=== PATIENT | male | born 1975 | race Asian ===

== ENCOUNTER → 2020-07-28 10:38 | Outpatient (CLI) | payer BC, SELFPAY ==
[2020-07-28] MEDS: COVID-19 VACC, Ad26(JANSSEN)/PF 0.5 ML IM (10:44)
== END ==
PROVIDERS: Visit Provider Internal Medicine
DX: Z23 Encounter for immunization (principal)
CPT/HCPCS: 0031A; 91303

== ENCOUNTER → 2020-11-07 07:36 | Outpatient (CLI) | payer BC, SELFPAY ==
[2020-11-07 08:19] LABS: Add Manual Diff / Slide Review NO; Basophils Absolute Auto 0 /uL (0-100); Basophils Percent Auto 0.3 % (0-2); Eosinophils Absolute Auto 0 /uL (0-450); Eosinophils Percent Auto 1.2 % (2-4); Hematocrit 44.5 % (41-53); Hemoglobin 15.1 g/dL (13.5-17.5); Lymphocytes Absolute Auto 1400 /uL (1100-4500); Lymphocytes Percent Auto 34.4 % (25-40); Mean Corpuscular HGB Conc 33.9 % (30-36); Mean Corpuscular Hemoglobin 29.1 PG (26-34); Mean Corpuscular Volume 85.8 fL (80-100); Monocytes Absolute Auto 300 /uL (0-900); Monocytes Percent Auto 6.2 % (3-14); Neutrophils Absolute Auto 2400 /uL (1500-7000); Neutrophils Percent Auto 57.9 % (50-75); Platelet Count 157 X10^3/uL (150-400); Red Blood Cell Count 5.19 X10^6/uL (4.5-5.9); Red Cell Distribution Width 12.3 % (11.6-14.8); White Blood Cell Count 4.1 X10^3/uL (4.5-11.0)
[2020-11-07 08:43] LABS: Alanine Aminotransferase 36 IU/L (<50); Albumin 4.2 g/dL (3.5-5.0); Albumin Globulin Ratio 1.7 (1.0-2.8); Alkaline Phosphatase 60 U/L (38-126); Aspartate Aminotransferase 28 IU/L (17-59); Bilirubin Total 1.1 mg/dL (0.2-1.3); Blood Urea Nitrogen 16 mg/dL (9-20); Calcium 9.6 mg/dL (8.4-10.2); Carbon Dioxide 28 mmol/L (22-32); Chloride 105 mmol/L (98-107); Cholesterol 167 mg/dL (140-199); Estimated Glomerular Filt Rate > 60.0 mL/min (>60); Globulin 2.5 g/dL (1.7-4.1); Glucose 238 mg/dL (70-100); HDL Cholesterol 37 mg/dL (40-60); HEMOLYSIS < 15 (0-50); LDL Cholesterol Calculated 100 mg/dL (<100); Potassium 5.7 mmol/L (3.4-5.1); Sodium 140 mmol/L (137-145); Total Protein 6.7 g/dL (6.3-8.2); Triglycerides 150 mg/dL (35-150)
== END ==
PROVIDERS: PCP Family Medicine; Referring Provider Family Medicine; Visit Provider Family Medicine
DX: Z13.0 Encounter for screening for diseases of the blood and blood-forming organs and certain disorders involving the immune mechanism (principal); Z13.1 Encounter for screening for diabetes mellitus; Z13.220 Encounter for screening for lipoid disorders
CPT/HCPCS: 36415; 80053; 80061; 85025

== ENCOUNTER → 2020-11-22 06:57 | Outpatient (CLI) | payer BC, SELFPAY ==
[2020-11-22 08:43] LABS: Alanine Aminotransferase 33 IU/L (<50); Albumin 4.2 g/dL (3.5-5.0); Albumin Globulin Ratio 1.6 (1.0-2.8); Alkaline Phosphatase 60 U/L (38-126); Aspartate Aminotransferase 30 IU/L (17-59); BUN Creatinine Ratio 21.3 (6-22); Blood Urea Nitrogen 19 mg/dL (9-20); Calcium 9.1 mg/dL (8.4-10.2); Carbon Dioxide 28 mmol/L (22-32); Chloride 102 mmol/L (98-107); Estimated Glomerular Filt Rate > 60.0 mL/min (>60); Globulin 2.7 g/dL (1.7-4.1); Glucose 126 mg/dL (70-100); HEMOLYSIS < 15 (0-50); Potassium 4.3 mmol/L (3.4-5.1); Sodium 139 mmol/L (137-145); Total Protein 6.9 g/dL (6.3-8.2)
[2020-11-22 08:53] LABS: Add Manual Diff / Slide Review NO; Basophils Absolute Auto 100 /uL (0-100); Basophils Percent Auto 1.3 % (0-2); Eosinophils Absolute Auto 200 /uL (0-450); Eosinophils Percent Auto 4.9 % (2-4); Hematocrit 45.1 % (41-53); Hemoglobin 15.6 g/dL (13.5-17.5); Lymphocytes Absolute Auto 1500 /uL (1100-4500); Lymphocytes Percent Auto 31.3 % (25-40); Mean Corpuscular HGB Conc 34.5 % (30-36); Mean Corpuscular Hemoglobin 29.7 PG (26-34); Monocytes Absolute Auto 200 /uL (0-900); Monocytes Percent Auto 3.5 % (3-14); Neutrophils Absolute Auto 2900 /uL (1500-7000); Platelet Count 149 X10^3/uL (150-400); Red Blood Cell Count 5.25 X10^6/uL (4.5-5.9); Red Cell Distribution Width 12.5 % (11.6-14.8); White Blood Cell Count 4.8 X10^3/uL (4.5-11.0)
[2020-11-22 09:12] LABS: Hemoglobin A1C% w Est Avg Glu 9.8 % (4.0-6.0)
== END ==
PROVIDERS: PCP Family Medicine; Referring Provider Family Medicine; Visit Provider Family Medicine
DX: E87.5 Hyperkalemia (principal); R73.9 Hyperglycemia, unspecified
CPT/HCPCS: 36415; 80053; 83036; 85025

== ENCOUNTER → 2020-12-20 09:34 | Outpatient (CLI) | payer BC, SELFPAY ==
[2020-12-20 10:48] LABS: Hemoglobin A1C% w Est Avg Glu 7.2 % (4.0-6.0)
[2020-12-20 10:57] LABS: Alanine Aminotransferase 18 IU/L (<50); Albumin 4.6 g/dL (3.5-5.0); Albumin Globulin Ratio 1.9 (1.0-2.8); Alkaline Phosphatase 55 U/L (38-126); Aspartate Aminotransferase 26 IU/L (17-59); BUN Creatinine Ratio 26.7 (6-22); Bilirubin Total 1.1 mg/dL (0.2-1.3); Blood Urea Nitrogen 20 mg/dL (9-20); Carbon Dioxide 27 mmol/L (22-32); Chloride 105 mmol/L (98-107); Estimated Glomerular Filt Rate > 60.0 mL/min (>60); Globulin 2.4 g/dL (1.7-4.1); Glucose 100 mg/dL (70-100); HEMOLYSIS < 15 (0-50); Potassium 4.2 mmol/L (3.4-5.1); Sodium 138 mmol/L (137-145)
== END ==
PROVIDERS: PCP Family Medicine; Referring Provider Family Medicine; Visit Provider Family Medicine
DX: R73.9 Hyperglycemia, unspecified (principal)
CPT/HCPCS: 36415; 80053; 83036

== ENCOUNTER → 2021-02-22 08:06 | Outpatient (CLI) | payer BC, SELFPAY ==
[2021-02-22 09:08] LABS: Add Manual Diff / Slide Review NO; Basophils Absolute Auto 0 /uL (0-100); Basophils Percent Auto 0.3 % (0-2); Eosinophils Absolute Auto 100 /uL (0-450); Eosinophils Percent Auto 2.2 % (2-4); Hematocrit 45.2 % (41-53); Hemoglobin 15.5 g/dL (13.5-17.5); Lymphocytes Absolute Auto 1800 /uL (1100-4500); Lymphocytes Percent Auto 36.6 % (25-40); Mean Corpuscular HGB Conc 34.3 % (30-36); Mean Corpuscular Hemoglobin 29.2 PG (26-34); Mean Corpuscular Volume 85.1 fL (80-100); Monocytes Absolute Auto 300 /uL (0-900); Monocytes Percent Auto 5.9 % (3-14); Neutrophils Absolute Auto 2700 /uL (1500-7000); Platelet Count 134 X10^3/uL (150-400); Red Blood Cell Count 5.32 X10^6/uL (4.5-5.9); Red Cell Distribution Width 12.3 % (11.6-14.8); White Blood Cell Count 4.8 X10^3/uL (4.5-11.0)
[2021-02-22 09:26] LABS: Hemoglobin A1C% w Est Avg Glu 5.4 % (4.0-6.0)
[2021-02-22 10:10] LABS: BUN Creatinine Ratio 18.4 (6-22); Blood Urea Nitrogen 16 mg/dL (9-20); Calcium 9.4 mg/dL (8.4-10.2); Carbon Dioxide 32 mmol/L (22-32); Chloride 101 mmol/L (98-107); Estimated Glomerular Filt Rate > 60.0 mL/min (>60); Glucose 115 mg/dL (70-100); HEMOLYSIS < 15 (0-50); Potassium 4.2 mmol/L (3.4-5.1); Sodium 141 mmol/L (137-145)
== END ==
PROVIDERS: PCP Family Medicine; Referring Provider Family Medicine; Visit Provider Family Medicine
DX: D69.6 Thrombocytopenia, unspecified (principal); E87.5 Hyperkalemia; R73.9 Hyperglycemia, unspecified
CPT/HCPCS: 36415; 80048; 83036; 85025

== ENCOUNTER → 2021-02-23 14:55 | Outpatient (CLI) | payer BC, SELFPAY ==
--- NOTE | 2021-02-24 16:24 | DIAB.MNT ---
Medical Nutrition Therapy Assessment Name: Gelacio Díaz Date: 02/23/21 Time: 330-4p Provider: Stephen Gelacio presents for initial visit. Original hgA1c 11/22/20 indicated T2DM dx with 9.8%. Then repeat HgA1c on 12/20/20 showed a dramatic decrease to 7.2%. Most recent HgA1c was 5.4% without medications indicating remission of T2DM. Gelacio reports cutting out most carbohydrates, primarily rice. Also endorses increase in protein intake. Has questions about if he can enjoy Ramen occasionally. Diet recall: 8a: 1.5-2c cooked oats with grapefruit, kimchi 12-1p: tofu, salad, egg, meat and apple snack: nuts 6-7p: tofu, 1.5c meat, vegetables, kimchi 8-9p: 1c berries +/- grapefruit Beverages: water 34-50oz, 2c green tea, 1c black coffee Denies any BM issues. Does endorse some hair loss. Not sure if this is related to nutrition changes or not. Anthropometrics: Ht: 5'10.8 Wt: 214# Physical Activity: Reports new regimen of walking for over 60 min daily (4 miles) Self-Monitoring Blood Glucose: Checks BG at home. FBG often 110-130 mg/dL. Diabetes Medications: none Pertinent Labs: HgA1c 11/22/20 : 9.8% H HgA1c 12/20/20 : 7.2% H HgA1c 02/22/21 : 5.4% Past Medical History: (Last Updated 11/07/20 @ 08:58 by Shahbaz Mitchell MD) Hyperglycemia Hyperkalemia Nutrition Rx: Plate Method Nutrition Diagnosis: - Excessive saturated fat intake r/t large meat portions to avoid carb intake aeb diet recall Intervention: This participant was very receptive. Provided appropriate educational handouts. Discussed the following topics: Completed intake assessment. D HgA1c BG goals Plate Method, impact of macronutrients on blood sugar Eating out Choosing more plant based proteins over animal proteins Heart health nutrition Provided culturally appropriate nutrition handouts Role of physical activity Created SMART goals for patient self-care and success. Goals: Continue walks Try to choose tofu more often over meat Follow-up: NICOLAS GOMEZ follow-up in 2-3 weeks jaylen Maxwell RDN, JASON Certified Diabetes Care and Consumer Lender P: [phone] Thank you for this referral
== END ==
PROVIDERS: PCP Family Medicine; Referring Provider Family Medicine; Visit Provider Family Medicine
DX: Z86.39 Personal history of other endocrine, nutritional and metabolic disease (principal); Z71.3 Dietary counseling and surveillance
CPT/HCPCS: G0108

== ENCOUNTER 2021-04-05 15:34 | Outpatient (RCR) | payer BC, SELFPAY ==
--- NOTE | 2021-04-05 17:18 | PT.OIE ---
Current Diagnoses Pain in left shoulder (04/05/21) Stiffness of left shoulder, not elsewhere classified (04/05/21) Other injury of muscle(s) and tendon(s) of the rotator cuff of left shoulder, subsequent encounter (04/05/21) Past Medical History (Last Updated 11/07/20 @ 08:58 by Shahbaz Mitchell MD) Hyperglycemia Hyperkalemia Visit Care Team Role Provider Type Shahbaz Mitchell MD Attending Provider Physician Family Provider Primary Care Provider Referring Provider Specialty: [facility] Address: [address] [place] [address] Email: [email or web address] Physical Therapy Initial Evaluation PT-OP-A Visit Information Start: 04/05/21 16:50 Freq: Status: Active Protocol: Document 04/05/21 16:00 DCW (Rec: 04/05/21 17:18 DCW [id number]) Out-Patient Physical Therapy Visit Information Visit Information Visit Type Initial Evaluation Visit Start Time 16:00 Visit Stop Time 16:40 Total Visit Minutes 40 Visit Number 1 Number of SUPERVISOR PASTRY Visits 0 Evaluation Information Evaluation Date 04/05/21 PT-OP-B Current Condition Start: 04/05/21 16:50 Freq: Status: Active Protocol: Document 04/05/21 16:00 DCW (Rec: 04/05/21 17:18 DCW [id number]) Current Condition History of Current Condition Onset Date Two month history Current Complaints Left shoulder pain and loss of motion History of Current Condition Pt is a 45 year old male presenting with a two months history of left shoulder pain. Pt reports he does not remember any initial injury, it just began hurting one day. Notes that if he is relaxed, he has no pain, but begins to experience severe pain when raising his arm out to the saide or forward. Pt also unable to reach his left hand over to wash his right armpit while showering without increased pain. Notes pain wakes him up at night if he moves his arm wrong. PT-OP-C Subjective Start: 04/05/21 16:50 Freq: Status: Active Protocol: Document 04/05/21 16:00 DCW (Rec: 04/05/21 17:18 DCW [id number]) OP-PT Subjective Patient Comments Patient Comments I can only get my arm about longterm up before it really hurts. Patient Questionnaires Quick Dash- Upper Extremity Quick Dash UE Score 27.27% Quick Dash UE Impairment 20 to 39% Impaired (Score 20- 39) OP-PT Pain Assessment Pain Assessment Grid Paper Pain Assessment Grid Completed Yes Location Left Lateral Shoulder Intensity 9 Scale Used Numeric (0 - 10) PT-OP-K Range of Motion Start: 04/05/21 16:50 Freq: Status: Active Protocol: Document 04/05/21 16:00 DCW (Rec: 04/05/21 17:18 DCW [id number]) Shoulder Goniometric Range of Motion Shoulder Left Passive Testing Position Supine Flexion 123 Abduction 90 External Rotation at 0 degrees Abduction 5 Left Active Testing Position Sitting Flexion 88 Abduction 65 External Rotation at 0 degrees Abduction 2 Internal Rotation Behind Back (text) PSIS PT-OP-L Special Tests Start: 04/05/21 16:50 Freq: Status: Active Protocol: Document 04/05/21 16:00 DCW (Rec: 04/05/21 17:18 DCW [id number]) Special Tests Shoulder Special Tests Speed's Biceps Test Results Negative Painful Arc Test Results Positive L Passive ER Rotator Cuff Test Results Positive L Holland Tk Impingement Test Results Negative Lift-Off Rotator Cuff Test Results Unable to position Grind Labrum Test Results Negative Empty Can Test Results Negative Clunk Test Test Results Negative Apprehension Test Test Results Negative Belly Press Test Results Negative Anterior Draw Test Results Negative PT-OP-M Strength Start: 04/05/21 16:50 Freq: Status: Active Protocol: Document 04/05/21 16:00 DCW (Rec: 04/05/21 17:18 DCW [id number]) Shoulder Strength Shoulder Manual Muscle Testing Left Flexion 2+ Poor+ Abduction (C5) 2- Poor- External Rotation 2+ Poor+ Internal Rotation 4- Good- PT-OP-Q Treatments Start: 04/05/21 16:50 Freq: Status: Active Protocol: Document 04/05/21 16:00 DCW (Rec: 04/05/21 17:18 DCW [id number]) Therapeutic Exercises Standing Exercises 3 Standing Exercise Name Shoulder IR/ER Side left Resistance Lv 2 Equipment Used T-band 2 Standing Exercise Name PROM Flexion/Abd with PVC Side left 1 Standing Exercise Name Pendulums Side left PT-OP-T Assessment and Plan Start: 04/05/21 16:50 Freq: Status: Active Protocol: Document 04/05/21 16:00 DCW (Rec: 04/05/21 17:18 DCW [id number]) Physical Therapy Assessment Rehab Potential Rehabilitation Potential Fair Evaluation Complexity Number of Personal Factors/Comorbidities 1-2 Number of Body Systems Impaired 1-2 Clinical Presentation at Evaluation Stable Impairments Impairments Functional Activities, Functional Mobility,Pain,ROM, Soft Tissue Mobility,Strength Goals Three Impairment Pt demonstrates limited ROM secondary to left shoulder pain Nursing Home Goal (LTG) Pt to report ability to use left arm to wash right axillary area in the shower 100% of the time with no increased shoulder pain. LTG Duration 06/06/21 Two Impairment Pt has frequent disturbed sleep due to shoulder pain Nursing Home Goal (LTG) Pt to report decrease in sleep disturbances secondary to left shoulder pain to two or fewer times per night LTG Duration 06/06/21 One Impairment Pt does not have an appropriate home exercise program Short Term Goal (STG) Pt to be independent and compliant with an appropriate HEP STG Duration 05/06/21 Assessment Summary Assessment Pt presents with signs and symptoms consistent with left supraspinatus injury. Based on severe pain and significant loss of ROM, pt may have degenerative tearing of his supraspinatus tendon, however pt would likely need an MRI to further rule in/out severity of his injury. Pt has significant loss of left shoulder ROM, especially abduction, and demonstrates severe weakness. Discussed with him importance of performing passive ROM to limit risk of adhesive capsulitis, and reviewed gentle strengthening. At this time, pt would prefer to work on HEP independently, and only return for follow-up visits with PT if he needs. Would still recommend considering referral for MRI if pt does not show improvement. Physical Therapy Plan Frequency and Duration Frequency of Treatment Every Other Week Duration of Treatment Two months Plan of Care Start Date 04/05/21 Plan of Care End Date 06/06/21 Therapeutic Interventions Therapeutic Interventions Home Exercise Program,Joint Mobilizations,Manual Therapy, Neuromuscular Re-education, Patient/Caregiver Education, Self-Care/Home Management,Soft Tissue Mobilization, Therapeutic Activities, Therapeutic Exercises Modalities Cold Pack/Ice Massage,Electric Stimulation,Hot Packs, Ultrasound Next Visit Focus/Plan Next Note Type Treatment Note Next Visit Plan PROM, shoulder strengthening
--- NOTE | 2021-04-05 17:18 | PT.OPPOC ---
Physical, Occupational & Speech Therapy At [facility] Current Diagnoses Pain in left shoulder (04/05/21) Stiffness of left shoulder, not elsewhere classified (04/05/21) Other injury of muscle(s) and tendon(s) of the rotator cuff of left shoulder, subsequent encounter (04/05/21) Visit Care Team Role Provider Type Shahbaz Mitchell MD Attending Provider Physician Family Provider Primary Care Provider Referring Provider Specialty: Family Practice Address: [address] [place] [address], [employer] Email: [email or web address] Plan Of Care PT-OP-T Assessment and Plan Start: 04/05/21 16:50 Freq: Status: Active Protocol: Document 04/05/21 16:00 DCW (Rec: 04/05/21 17:18 DCW [id number]) Physical Therapy Assessment Rehab Potential Rehabilitation Potential Fair Evaluation Complexity Number of Personal Factors/Comorbidities 1-2 Number of Body Systems Impaired 1-2 Clinical Presentation at Evaluation Stable Impairments Impairments Functional Activities, Functional Mobility,Pain,ROM, Soft Tissue Mobility,Strength Goals Three Impairment Pt demonstrates limited ROM secondary to left shoulder pain Intermediate Goal (LTG) Pt to report ability to use left arm to wash right axillary area in the shower 100% of the time with no increased shoulder pain. LTG Duration 06/06/21 Two Impairment Pt has frequent disturbed sleep due to shoulder pain Intermediate Goal (LTG) Pt to report decrease in sleep disturbances secondary to left shoulder pain to two or fewer times per night LTG Duration 06/06/21 One Impairment Pt does not have an appropriate home exercise program Short Term Goal (STG) Pt to be independent and compliant with an appropriate HEP STG Duration 05/06/21 Assessment Summary Assessment Pt presents with signs and symptoms consistent with left supraspinatus injury. Based on severe pain and significant loss of ROM, pt may have degenerative tearing of his supraspinatus tendon, however pt would likely need an MRI to further rule in/out severity of his injury. Pt has significant loss of left shoulder ROM, especially abduction, and demonstrates severe weakness. Discussed with him importance of performing passive ROM to limit risk of adhesive capsulitis, and reviewed gentle strengthening. At this time, pt would prefer to work on HEP independently, and only return for follow-up visits with PT if he needs. Would still recommend considering referral for MRI if pt does not show improvement. Physical Therapy Plan Frequency and Duration Frequency of Treatment Every Other Week Duration of Treatment Two months Plan of Care Start Date 04/05/21 Plan of Care End Date 06/06/21 Therapeutic Interventions Therapeutic Interventions Home Exercise Program,Joint Mobilizations,Manual Therapy, Neuromuscular Re-education, Patient/Caregiver Education, Self-Care/Home Management,Soft Tissue Mobilization, Therapeutic Activities, Therapeutic Exercises Modalities Cold Pack/Ice Massage,Electric Stimulation,Hot Packs, Ultrasound Next Visit Focus/Plan Next Note Type Treatment Note Next Visit Plan PROM, shoulder strengthening Plan of Care Dates Plan of Care Start Date 04/05/21 Plan of Care End Date 06/06/21 Electronically Signed by: Rick Montes, PT 04/05/21 4713 Please Sign and Return: I have reviewed this Plan of Care and certify that the skilled therapy services above are required to meet the patient?s needs. Physician Signature Date Printed Name and Credentials Clinical Instructor Signature Printed Name and Credentials
--- NOTE | 2021-06-22 10:06 | PT.OPDS ---
Current Diagnoses Pain in left shoulder (04/05/21) Stiffness of left shoulder, not elsewhere classified (04/05/21) Other injury of muscle(s) and tendon(s) of the rotator cuff of left shoulder, subsequent encounter (04/05/21) Visit Care Team Role Provider Type Shahbaz Mitchell MD Attending Provider Physician Family Provider Primary Care Provider Referring Provider Specialty: Family Practice Address: [address] [place] [address], [facility] Email: [email or web address] Visit Number Visit Number 1 Discharge Summary PT-OP-B Current Condition Start: 04/05/21 16:50 Freq: Status: Active Protocol: Document 04/05/21 16:00 DCW (Rec: 04/05/21 17:18 DCW [id number]) Current Condition History of Current Condition Onset Date Two month history Current Complaints Left shoulder pain and loss of motion History of Current Condition Pt is a 45 year old male presenting with a two months history of left shoulder pain. Pt reports he does not remember any initial injury, it just began hurting one day. Notes that if he is relaxed, he has no pain, but begins to experience severe pain when raising his arm out to the said or forward. Pt also unable to reach his left hand over to wash his right armpit while showering without increased pain. Notes pain wakes him up at night if he moves his arm wrong. PT-OP-C Subjective Start: 04/05/21 16:50 Freq: Status: Active Protocol: Document 04/05/21 16:00 DCW (Rec: 04/05/21 17:18 DCW [id number]) OP-PT Subjective Patient Comments Patient Comments I can only get my arm about prison up before it really hurts. Patient Questionnaires Quick Dash- Upper Extremity Quick Dash UE Score 27.27% Quick Dash UE Impairment 20 to 39% Impaired (Score 20- 39) OP-PT Pain Assessment Pain Assessment Grid Paper Pain Assessment Grid Completed Yes Location Left Lateral Shoulder Intensity 9 Scale Used Numeric (0 - 10) PT-OP-K Range of Motion Start: 04/05/21 16:50 Freq: Status: Active Protocol: Document 04/05/21 16:00 DCW (Rec: 04/05/21 17:18 [facility] [id number]) Shoulder Goniometric Range of Motion Shoulder Left Passive Testing Position Supine Flexion 123 Abduction 90 External Rotation at 0 degrees Abduction 5 Left Active Testing Position Sitting Flexion 88 Abduction 65 External Rotation at 0 degrees Abduction 2 Internal Rotation Behind Back (text) PSIS PT-OP-L Special Tests Start: 04/05/21 16:50 Freq: Status: Active Protocol: Document 04/05/21 16:00 DCW (Rec: 04/05/21 17:18 DC [id number]) Special Tests Shoulder Special Tests Speed's Biceps Test Results Negative Painful Arc Test Results Positive L Passive ER Rotator Cuff Test Results Positive L Holland Tk Impingement Test Results Negative Lift-Off Rotator Cuff Test Results Unable to position Grind Labrum Test Results Negative Empty Can Test Results Negative Clunk Test Test Results Negative Apprehension Test Test Results Negative Belly Press Test Results Negative Anterior Draw Test Results Negative PT-OP-M Strength Start: 04/05/21 16:50 Freq: Status: Active Protocol: Document 04/05/21 16:00 DCW (Rec: 04/05/21 17:18 [facility] [id number]) Shoulder Strength Shoulder Manual Muscle Testing Left Flexion 2+ Poor+ Abduction (C5) 2- Poor- External Rotation 2+ Poor+ Internal Rotation 4- Good- PT-OP-T Assessment and Plan Start: 04/05/21 16:50 Freq: Status: Active Protocol: Document 06/22/21 10:04 DCW (Rec: 06/22/21 10:06 DCW [id number]) Physical Therapy Assessment Assessment Summary Assessment At time of eval, pt did not want to schedule any follow-up , just work on his HEP independently, and see how things progressed. Pt has now not scheduled a follow-up 2.5 months later, and will be discharged from skilled PT. Pt will need a new referral in order to return. Physical Therapy Plan Discharge Physical Therapy Discharge Reasons No Longer Attending PT Next Visit Focus/Plan Next Note Type Discharge Summary
== END 2021-06-26 13:41 ==
LOC: PHYS 15:34
PROVIDERS: Family Provider Family Medicine; PCP Family Medicine; Referring Provider Family Medicine; Visit Provider Family Medicine
DX: M25.512 Pain in left shoulder (principal); S46.092D Other injury of muscle(s) and tendon(s) of the rotator cuff of left shoulder, subsequent encounter; M25.612 Stiffness of left shoulder, not elsewhere classified
CPT/HCPCS: 97110; 97161

== ENCOUNTER 2022-09-10 20:58 | Emergency (ER) | payer BC, SELFPAY ==
[2022-09-10 21:03] VITALS: BP 143/101; PULSE 80; RESP 18; TEMP 36.7; O2SAT 96; BMI 33.6
--- NOTE | 2022-09-10 23:41 | ED.WOUNDLAC ---
HPI - Wound/Laceration General Chief Complaint: Wound/Laceration Stated Complaint: GLF ON FACE Time Seen by Provider: 09/10/22 23:40 Source: patient Mode of arrival: Ambulatory History of Present Illness HPI narrative: Patient is a 47-year-old healthy male who presents today with a chin laceration. He was caring barbecue and when he tripped and fell. No loss of consciousness no other symptoms. Related Data Allergies Allergy/AdvReac Type Severity Reaction Status Date / Time No Known Drug Allergies Allergy Verified 09/10/22 23:44 Review of Systems Review of Systems ROS Unobtainable: All systems reviewed & are unremarkable except as noted in HPI and below Patient History Social History Smoking Status: Never smoker Smoking Status: Never smoker Substance Use Type: does not use Exam Initial Vital Signs Initial Vital Signs: Vital Signs Temperature 98.1 F 09/10/22 21:03 Pulse Rate 80 09/10/22 21:03 Respiratory Rate 18 09/10/22 21:03 Blood Pressure 143/101 H 09/10/22 21:03 Pulse Oximetry 96 09/10/22 21:03 Oxygen Delivery Method Room Air 09/10/22 21:03 GENERAL: Well-appearing, well-nourished and in no acute distress. CARDIOVASCULAR: peripheral pulses in tact, cap refill <2 sec RESPIRATORY: No respiratory distress, speaks in full sentences without difficulty EXTREMITIES: Normal range of motion, no clubbing or edema. Neurovascularly intact NEUROLOGICAL: Cranial nerves II through XII grossly intact. Normal gait and speech. SKIN: Chin laceration 2.5 cm good skin approximation. Procedures Laceration Repair Laceration 1: Site: face (chin) Side (If applicable): left Size (cm): 2.5 Description: linear Depth: simple, single layer Local Anesthetic: lidocaine 1% Amount of anesthesia used (mL): 2 Pre-repair: wound explored, irrigated extensively and deep structures intact Skin layer closed with: nylon Skin layer suture size: 5-0 Number of sutures: 3 Technique: simple, interrupted Course Orders Ordered: Discontinued Medications Diphtheria/Tetanus/Acell Pertussis (Tet,Diph,Pertuss(Acell),Vac/Pf 0.5 Ml Syringe) 0.5 ml IM .ONCE ONE Stop: 09/10/22 23:44 Last Admin: 09/10/22 23:47 Dose: 0.5 ml Documented By: KIMBER Vital Signs Vital signs: Vital Signs - 8 hr 09/10/22 23:52 Pulse Rate 82 Respiratory Rate 16 Blood Pressure 141/88 H Pulse Oximetry 95 Oxygen Delivery Method Room Air MDM - Wound/Laceration MDM Narrative Medical decision making narrative: Patient healthy 47-year-old male who presents with a simple chin laceration after a trip and fall. No concern for syncope. His tetanus is updated here in the ED. It is easily closed with 3 sutures. Given instructions for follow-up and when to return. Discharge Plan Departure Patient Disposition: Home Clinical Impression: Chin laceration Instructions: DI for Laceration Repair Activity Restrictions/Additional Instructions: 1. Have your suture removed in 5-7 days, you may go to walk-in clinic, return to the ER or call your primary care physician. 2. No soaking in water including dishes, bathtubs, Lakes, swimming pools etc 3. Signs of infection include, but not limited to, increased redness, increased swelling, increased pain, fever and purulent drainage, if the symptoms should arise, you may need an antibiotic and you should have a reevaluation either by your primary care provider or by the emergency department. Stand Alone Forms: Patient Portal/API
[2022-09-10] MEDS: TET,DIPH,PERTUSS(ACELL),VAC/PF 0.5 ML SYRINGE IM (23:47)
[2022-09-10 23:52] VITALS: BP 141/88; PULSE 82; RESP 16; O2SAT 95
== END 2022-09-10 23:57 | disposition home or self-care (01) ==
PROVIDERS: Emergency Provider Emergency Medicine
DX: S01.81XA Laceration without foreign body of other part of head, initial encounter (principal); W01.198A Fall on same level from slipping, tripping and stumbling with subsequent striking against other object, initial encounter; Z23 Encounter for immunization
CPT/HCPCS: 12011; 90471; 99283; 90715

== ENCOUNTER 2023-01-12 13:45 | Observation (INO) | payer BC, SELFPAY ==
--- NOTE | 2023-01-12 13:47 | DI.RAD.S_ITS ---
PROCEDURE: XR CHEST 1V INDICATIONS: trauma TECHNIQUE: One view of the chest was acquired. COMPARISON: None. FINDINGS: Surgical changes and devices: None. Lungs and pleura: Lungs are clear. No pleural effusions or pneumothorax. Mediastinum: Mediastinal contours appear normal. Heart size is normal. Bones and chest wall: No suspicious bony lesions. Overlying soft tissues appear unremarkable. IMPRESSION: No acute radiographic abnormality. Single-view limited radiograph. Dictated by: Trey Scott M.D. on 01/12/2023 at 15:36 Approved by: Trey Scott M.D. on 01/12/2023 at 15:37
--- NOTE | 2023-01-12 13:47 | DI.RAD.S_ITS ---
PROCEDURE: XR PELVIS 1-2V INDICATIONS: trauma TECHNIQUE: 1 view(s) of the pelvis acquired. COMPARISON: None. FINDINGS: Bones: Mild degenerative changes. No displaced fracture or dislocation. Soft tissues: There are pelvic calcifications, probably phleboliths. IMPRESSION: No acute radiographic abnormality. CT is pending. Dictated by: Trey Scott M.D. on 01/12/2023 at 15:37 Approved by: Trey Scott M.D. on 01/12/2023 at 15:37
[2023-01-12 13:49] VITALS: BP 150/95; PULSE 87; RESP 22; O2SAT 97; BMI 33.4
--- NOTE | 2023-01-12 13:51 | DI.CT.S_ITS ---
PROCEDURE: CT HEAD/BRAIN WO CON INDICATIONS: Trauma TECHNIQUE: Noncontrast 4.5 mm thick angled axial sections acquired from the foramen magnum to the vertex, with coronal and sagittal reformats. For radiation dose reduction, the following was used: automated exposure control, adjustment of mA and/or kV according to patient size. COMPARISON: None. FINDINGS: Image quality: Good CSF spaces: Basal cisterns are patent. Lateral ventricles are symmetric. Volume: Generally maintained. Brain: No intracranial hemorrhage. Neal-white differentiation is grossly maintained. Craniofacial structures: No displaced fracture. Sinuses are clear. Orbits are intact. IMPRESSION: No acute intracranial abnormality. Dictated by: Trey Scott M.D. on 01/12/2023 at 15:38 Approved by: Trey Scott M.D. on 01/12/2023 at 15:39
--- NOTE | 2023-01-12 13:51 | DI.CT.S_ITS ---
PROCEDURE: CT CERVICAL SPINE WO CON INDICATIONS: Trauma TECHNIQUE: Noncontrast 3 mm thick sections acquired from the skull base to the T4 level. Sagittal and coronal reformats were then constructed. For radiation dose reduction, the following was used: automated exposure control, adjustment of mA and/or kV according to patient size. COMPARISON: None. FINDINGS: Image quality: Good Bones: Mild degenerative changes. Straightening of normal cervical lordosis. No traumatic subluxation. Nuchal ligament calcifications. No acute vertebral body height loss. Soft tissues: Chest findings are separately dictated. No pathologic prevertebral soft tissue swelling. IMPRESSION: No acute fracture or traumatic subluxation. If there is high concern for further derangement, consider MRI evaluation. Dictated by: Trey Scott M.D. on 01/12/2023 at 15:39 Approved by: Trey Scott M.D. on 01/12/2023 at 15:41
--- NOTE | 2023-01-12 13:52 | DI.CT.S_ITS ---
PROCEDURE: CT CHEST ABD PEL W CON INDICATIONS: Trauma TECHNIQUE: After the administration of intravenous contrast, 5 mm thick sections acquired from the lung apices to the symphysis. 2.5 mm thick coronal and sagittal reformats were acquired. Additional 7 mm thick coronal maximum intensity projection (MIP) reformats acquired through the lungs. Optional 10-minute delayed imaging may be performed from the kidneys to the bladder. For radiation dose reduction, the following was used: automated exposure control, adjustment of mA and/or kV according to patient size. COMPARISON: None. FINDINGS: Image quality: Good Lungs and pleura: Bibasal atelectasis. No pneumothorax. No pulmonary contusion or laceration. No pulmonary nodules identified that requires follow-up imaging per Fleischner guidelines. Mediastinum, heart, and esophagus: No evidence of mediastinal hematoma. No hiatal hernia. Normal heart size. No pathologic lymph nodes by size criteria. Chest wall and thyroid: Chest wall is unremarkable. Solid organs: Possible hepatic steatosis. No solid organ laceration or capsular hematoma. Gallbladder is unremarkable. No pathologic dilation of the biliary system or pancreatic duct. No splenomegaly or capsular hematoma. Indeterminate lesion is seen in the anterior aspect of the spleen measuring 1.1 cm (). No hydronephrosis. Vessels and lymph nodes: No evidence of retroperitoneal hemorrhage. The main portal vein is patent. No abdominal aortic aneurysm or pathologic lymph nodes by size criteria. Bowel and peritoneum: No evidence of small bowel obstruction. No hemoperitoneum. Nondilated appendix. Body wall: Unremarkable Pelvis: Bladder is unremarkable. Prostate is unremarkable on limited CT evaluation. Bones: No suspicious osseous finding. There are degenerative changes. No acute fracture or traumatic subluxation of the thoracolumbar spine. There are possible right L1-3 transverse process fractures, with well corticated edges, suggesting that these are not acute. Minimally displaced left upper rib fracture. IMPRESSION: Mildly displaced sternal and left 11th rib fractures. No acute intrathoracic or intra-abdominal pelvic injury. An indeterminate 1.1 cm lesion is seen at the anterior aspect of the spleen, consider future MRI to further evaluate non urgently. Comparison to outside prior imaging could also be helpful. Right L3-L1 transverse process fractures may not be acute. Other findings as above. Dictated by: Trey Scott M.D. on 01/12/2023 at 15:42 Approved by: Trey Scott M.D. on 01/12/2023 at 15:53
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
[2023-01-12 15:05] LABS: INR 1.1 (0.9-1.3); PTT Partial Thromboplastin Tim 34 SECONDS (26-36); Prothrombin Time 13.1 SECONDS (10.1-12.7)
[2023-01-12 15:12] LABS: Add Manual Diff / Slide Review NO; Basophils Absolute Auto 0 /uL (0-100); Basophils Percent Auto 0.3 % (0-2); Eosinophils Absolute Auto 100 /uL (0-450); Eosinophils Percent Auto 2.3 % (2-4); Hematocrit 39.4 % (41-53); Hemoglobin 13.8 g/dL (13.5-17.5); Lymphocytes Absolute Auto 1300 /uL (1100-4500); Lymphocytes Percent Auto 21.6 % (25-40); Mean Corpuscular Hemoglobin 29.4 PG (26-34); Mean Corpuscular Volume 84.1 fL (80-100); Monocytes Absolute Auto 300 /uL (0-900); Monocytes Percent Auto 5.7 % (3-14); Neutrophils Absolute Auto 4200 /uL (1500-7000); Neutrophils Percent Auto 70.1 % (50-75); Platelet Count 137 X10^3/uL (150-400); Red Blood Cell Count 4.68 X10^6/uL (4.5-5.9); Red Cell Distribution Width 12.2 % (11.6-14.8); White Blood Cell Count 5.9 X10^3/uL (4.5-11.0)
[2023-01-12 15:13] LABS: Alanine Aminotransferase 51 IU/L (<50); Albumin 3.8 g/dL (3.5-5.0); Albumin Globulin Ratio 1.4 (1.0-2.8); Alkaline Phosphatase 67 U/L (38-126); Aspartate Aminotransferase 35 IU/L (17-59); BUN Creatinine Ratio 15.1 (6-22); Bilirubin Total 0.8 mg/dL (0.2-1.3); Blood Urea Nitrogen 11 mg/dL (9-20); Calcium 8.7 mg/dL (8.4-10.2); Carbon Dioxide 27 mmol/L (22-32); Chloride 100 mmol/L (98-107); Estimated Glomerular Filt Rate > 60 mL/min (>60); Ethanol (ETOH) < 10 mg/dL; Globulin 2.7 g/dL (1.7-4.1); Glucose 260 mg/dL (70-100); Lactate (Lactic Acid) 1.9 mmol/L (0.7-2.1); Potassium 3.6 mmol/L (3.4-5.1); Sodium 134 mmol/L (137-145); Total Protein 6.5 g/dL (6.3-8.2)
--- NOTE | 2023-01-12 15:20 | PC.NURSE ---
computer system went down during patient stay in ER. some charting times may be off. VS taken Q5min until pt deemed stable then switched to Q30min. unable to transfer all VS into computer system.
[2023-01-12 15:28] LABS: HEMOLYSIS < 15 (0-50); Lipase 112 U/L (23-300)
[2023-01-12 15:54] LABS: UR Morphine/Opiate cutoff 300 Negative (Negative); Ur Creatinine Normal (Normal); Ur Specific Gravity Normal (Normal); Urine Amphetamines Negative (Negative); Urine Cocaine Negative (Negative); Urine MDMA Negative (Negative); Urine Methamphetamines Negative (Negative); Urine Phencyclidine Negative (Negative); Urine Tetrahydrocannabinol Negative (Negative); Urine pH Normal (Normal)
[2023-01-12 15:55] LABS: Urine Barbiturates Negative (Negative); Urine Benzodiazepines Negative (Negative); Urine Methadone Negative (Negative); Urine Oxycodone Negative (Negative); Urine Tricyclic Antidepressant Negative (Negative)
[2023-01-12 16:23] LABS: Bacteria Urine None Seen; Culture Indicated Urine Cult Not Indicated; RBC Urine 1-5/HPF (0-5/HPF); Squamous Epithelial Cell Urine None Seen (0-5/HPF); WBC Urine 0-1/HPF (0-5/HPF)
[2023-01-12] MEDS: ACETAMINOPHEN 325 MG TABLET 975 MG PO (16:44)
[2023-01-12 17:07] VITALS: BP 137/86; PULSE 90; RESP 19; TEMP 36.8; O2SAT 98
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
[2023-01-12 17:38] VITALS: BMI 33.4
[2023-01-12 17:42] LABS: Cholesterol 166 mg/dL (140-199); HDL Cholesterol 20 mg/dL (40-60); Magnesium 1.9 mg/dL (1.6-2.3)
[2023-01-12 17:44] LABS: Hemoglobin A1C% w Est Avg Glu 7.7 % (4.0-6.0)
[2023-01-12 17:52] LABS: Triglycerides 705 mg/dL (35-150)
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
--- NOTE | 2023-01-12 18:04 | PC.NURSE ---
Patient admitted from ED via stretcher. Ambulated to ICU bed with standby assistance. States minimal pain, tolerable, and required no medication. Call light within reach and family at bedside.
[2023-01-12 18:15] LABS: TSH w/ Reflex to FT4 1.31 uIU/mL (0.47-4.68)
[2023-01-12 18:26] LABS: LDL Cholesterol Direct 44 mg/dL (<100)
--- NOTE | 2023-01-12 18:55 | PC.NURSE ---
Due to computer systems going down, VS were unable to be saved in EMR. VS were taken on pt Q5min until C-collar was removed around 1630. then VS were continued Q30min. This nurse monitored VS and all being within normal limits. average heart rate was mid80s- low 90s. BPs averaged from 120-140/80-90. oxygen was above 95% at all times on room air. RR varied depending on if patient was speaking with family or not. pain rated was consistently rated 3-4/10 when patient was still and 7-8/10 with movement
[2023-01-12 20:00] VITALS: BP 130/70; PULSE 101; RESP 24; TEMP 37.1; O2SAT 96
[2023-01-12] MEDS: INSULIN GLARGINE 100 UNIT/ML 3ML PEN 10 UNIT SUBCUT (20:07)
[2023-01-12 20:08] LABS: MRSA (Nasal) PCR Not Detected (Not Detect)
[2023-01-12] MEDS: INSULIN LISPRO 100 UNIT/ML 3ML VIAL SUBCUT (20:08)
[2023-01-12] MEDS: ATORVASTATIN 20 MG TABLET 40 MG PO (20:09)
[2023-01-12] MEDS: ACETAMINOPHEN 325 MG TABLET 650 MG PO (20:19)
[2023-01-12] MEDS: OXYCODONE IR 5 MG TABLET PO (22:12)
[2023-01-12 22:29] LABS: Troponin I 0.994 ng/mL (0.01-0.034)
[2023-01-13] VITALS: BP 123/77; PULSE 91; RESP 17; TEMP 36.2; O2SAT 95
[2023-01-13 04:00] VITALS: BP 119/83; PULSE 79; RESP 19; TEMP 36.6; O2SAT 95
[2023-01-13 04:12] LABS: BUN Creatinine Ratio 17.7 (6-22); Blood Urea Nitrogen 14 mg/dL (9-20); Calcium 9.1 mg/dL (8.4-10.2); Carbon Dioxide 27 mmol/L (22-32); Chloride 100 mmol/L (98-107); Estimated Glomerular Filt Rate > 60 mL/min (>60); Glucose 212 mg/dL (70-100); HEMOLYSIS 47 (0-50); Potassium 4.3 mmol/L (3.4-5.1); Sodium 135 mmol/L (137-145)
[2023-01-13 04:13] LABS: Cholesterol 206 mg/dL (140-199); HDL Cholesterol 28 mg/dL (40-60)
[2023-01-13 04:20] LABS: Triglycerides 583 mg/dL (35-150)
[2023-01-13 04:31] LABS: Troponin I 0.942 ng/mL (0.01-0.034)
[2023-01-13 08:00] VITALS: BP 127/83; PULSE 103; RESP 16; TEMP 36.4; O2SAT 97
[2023-01-13] MEDS: ASPIRIN EC 81 MG TABLET PO (08:36)
[2023-01-13 08:57] LABS: Add Manual Diff / Slide Review NO; Basophils Absolute Auto 0 /uL (0-100); Basophils Percent Auto 0.3 % (0-2); Eosinophils Absolute Auto 100 /uL (0-450); Eosinophils Percent Auto 1.2 % (2-4); Hemoglobin 15.8 g/dL (13.5-17.5); Lymphocytes Absolute Auto 1600 /uL (1100-4500); Lymphocytes Percent Auto 18.8 % (25-40); Mean Corpuscular Hemoglobin 29.6 PG (26-34); Mean Corpuscular Volume 84.4 fL (80-100); Monocytes Absolute Auto 500 /uL (0-900); Monocytes Percent Auto 5.3 % (3-14); Neutrophils Absolute Auto 6300 /uL (1500-7000); Neutrophils Percent Auto 74.4 % (50-75); Platelet Count 153 X10^3/uL (150-400); Red Blood Cell Count 5.34 X10^6/uL (4.5-5.9); Red Cell Distribution Width 12.6 % (11.6-14.8); White Blood Cell Count 8.5 X10^3/uL (4.5-11.0)
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
== END 2023-01-13 14:50 | disposition home or self-care (01) ==
LOC: ED 15:49 → AC 17:35 → ICU 17:58 → AC 01-14 07:31
PROVIDERS: Admitting Provider Student in an Organized Health Care Education/Training Program; Emergency Provider Emergency Medicine; Family Provider Family Medicine; PCP Family Medicine; Referring Provider Emergency Medicine; Visit Provider Student in an Organized Health Care Education/Training Program
DX: S22.32XA Fracture of one rib, left side, initial encounter for closed fracture (principal); S32.018A Other fracture of first lumbar vertebra, initial encounter for closed fracture; S32.028A Other fracture of second lumbar vertebra, initial encounter for closed fracture; S32.038A Other fracture of third lumbar vertebra, initial encounter for closed fracture; S22.20XA Unspecified fracture of sternum, initial encounter for closed fracture; R77.8 Other specified abnormalities of plasma proteins; S20.219A Contusion of unspecified front wall of thorax, initial encounter; E11.9 Type 2 diabetes mellitus without complications; E66.9 Obesity, unspecified; V43.52XA Car driver injured in collision with other type car in traffic accident, initial encounter; Y92.411 Interstate highway as the place of occurrence of the external cause; D73.89 Other diseases of spleen; E78.5 Hyperlipidemia, unspecified
CPT/HCPCS: 36415; 70450; 71045; 71260; 72125; 72170; 74177; 80048; 80053; 80061; 80305; 80320; 81003; 81015; 82962; 83036; 83605; 83690; 83721; 83735; 84443; 84484; 85025; 85610; 85730; 86850; 86900; 86901; 87797; 93005; 93306; 96372; 99285; 99291; G0378; G0390; J1815; Q9967

== ENCOUNTER 2023-01-15 11:19 | Emergency (ER) | payer BC, SELFPAY ==
[2023-01-15 11:40] VITALS: BP 130/93; PULSE 82; RESP 18; TEMP 36.7; O2SAT 97; BMI 33.1
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
[2023-01-15 12:13] LABS: Add Manual Diff / Slide Review NO; Basophils Absolute Auto 0 /uL (0-100); Basophils Percent Auto 0.3 % (0-2); Eosinophils Absolute Auto 100 /uL (0-450); Eosinophils Percent Auto 0.7 % (2-4); Hematocrit 43.6 % (41-53); Hemoglobin 15.3 g/dL (13.5-17.5); Lymphocytes Absolute Auto 1300 /uL (1100-4500); Lymphocytes Percent Auto 13.3 % (25-40); Mean Corpuscular Hemoglobin 29.4 PG (26-34); Monocytes Absolute Auto 400 /uL (0-900); Monocytes Percent Auto 3.7 % (3-14); Neutrophils Absolute Auto 7900 /uL (1500-7000); Platelet Count 137 X10^3/uL (150-400); Red Blood Cell Count 5.19 X10^6/uL (4.5-5.9); Red Cell Distribution Width 12.4 % (11.6-14.8); White Blood Cell Count 9.7 X10^3/uL (4.5-11.0)
[2023-01-15] MEDS: ONDANSETRON 4 MG/2 ML INJ IV (12:20)
[2023-01-15 12:22] LABS: INR 1.1 (0.9-1.3); Prothrombin Time 12.7 SECONDS (10.1-12.7)
[2023-01-15 12:24] VITALS: BP 127/86; PULSE 82; RESP 13; O2SAT 96
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
[2023-01-15 12:25] LABS: PTT Partial Thromboplastin Tim 33 SECONDS (26-36)
[2023-01-15 12:30] VITALS: BP 125/87; PULSE 83; RESP 18; O2SAT 91
[2023-01-15 12:31] LABS: Alanine Aminotransferase 43 IU/L (<50); Albumin 4.8 g/dL (3.5-5.0); Albumin Globulin Ratio 1.4 (1.0-2.8); Alkaline Phosphatase 72 U/L (38-126); Aspartate Aminotransferase 36 IU/L (17-59); BUN Creatinine Ratio 26.6 (6-22); Bilirubin Total 1.7 mg/dL (0.2-1.3); Blood Urea Nitrogen 17 mg/dL (9-20); Calcium 9.4 mg/dL (8.4-10.2); Carbon Dioxide 25 mmol/L (22-32); Chloride 100 mmol/L (98-107); Creatine Kinase 194 U/L (55-170); Estimated Glomerular Filt Rate > 60 mL/min (>60); Globulin 3.5 g/dL (1.7-4.1); Glucose 247 mg/dL (70-100); Lipase 72 U/L (23-300); Magnesium 1.8 mg/dL (1.6-2.3); Sodium 135 mmol/L (137-145); Total Protein 8.3 g/dL (6.3-8.2)
[2023-01-15 12:32] LABS: HEMOLYSIS 60 (0-50)
[2023-01-15 12:33] LABS: Potassium 4.4 mmol/L (3.4-5.1)
[2023-01-15 12:55] LABS: Troponin I 0.951 ng/mL (0.01-0.034)
[2023-01-15] MEDS: SODIUM CHLORIDE 0.9% 1,000 ML 1000 ML IV (13:07)
[2023-01-15 14:46] VITALS: BP 112/87; PULSE 91; O2SAT 100
== END 2023-01-15 14:59 | disposition home or self-care (01) ==
PROVIDERS: Emergency Provider Emergency Medicine; Family Provider Family Medicine; PCP Family Medicine
DX: R11.2 Nausea with vomiting, unspecified (principal); R42 Dizziness and giddiness; Z87.81 Personal history of (healed) traumatic fracture
CPT/HCPCS: 36415; 71046; 80053; 82550; 83690; 83735; 84484; 85025; 85610; 85730; 93005; 96361; 96374; 99284; J2405

== ENCOUNTER → 2023-02-12 11:22 | Outpatient (CLI) | payer BC, SELFPAY ==
[2023-01-21 09:14] VITALS: BMI 33.4
--- NOTE | 2023-02-12 11:24 | DI.RAD.S_ITS ---
PROCEDURE: XR CHEST 2V INDICATIONS: sternal fracture TECHNIQUE: 2 views of the chest were acquired. COMPARISON: [facility], CT, CT CHEST ABD PEL W CON, 01/12/2023, 14:13. [facility], CR, XR CHEST 2V, 01/15/2023, 12:01. FINDINGS: Surgical changes and devices: None. Lungs and pleura: Lungs are clear. No pleural effusions or pneumothorax. Mediastinum: Mediastinal contours are normal. Heart size is normal. Bones and chest wall: No suspicious bony abnormalities. Soft tissues appear unremarkable. IMPRESSION: No acute cardiopulmonary disease process. Sternal fracture and left 11th rib fracture are not identified by plain film radiograph. Dictated by: Lisa Dove MD, PhD on 02/12/2023 at 13:22 Approved by: Lisa Dove MD, PhD on 02/12/2023 at 13:24
--- NOTE | 2023-02-12 11:24 | DI.RAD.S_ITS ---
PROCEDURE: XR LUMBAR SPINE MIN 4V INDICATIONS: L1-L3 TECHNIQUE: 5 views of the lumbar spine were acquired, including bilateral oblique views. COMPARISON: None. FINDINGS: Bones: 5 nonrib-bearing vertebrae are present. There is normal bony alignment. No vertebral body compression fractures. No suspicious bony lesions. Mild degenerative disc changes throughout the lumbar spine. Mild L3-L4, L4-L5 and L5-S1 facet hypertrophy. Soft tissues: Overlying bowel gas pattern is normal. No suspicious soft tissue calcifications. Oblique images: No pars defects. IMPRESSION: 1. Multilevel degenerative disc disease. 2. Multilevel facet arthropathy. 3. No fracture. No acute osseous lesion. If symptoms and/or clinical suspicion for pathology persists, evaluation with MRI should be considered for further assessment. Dictated by: Lisa Dove MD, PhD on 02/12/2023 at 13:24 Approved by: Lisa Dove MD, PhD on 02/12/2023 at 13:25
== END ==
PROVIDERS: Family Provider Family Medicine; PCP Family Medicine; Referring Provider Family Medicine; Visit Provider Family Medicine
DX: S22.20XA Unspecified fracture of sternum, initial encounter for closed fracture (principal); S22.32XA Fracture of one rib, left side, initial encounter for closed fracture; S32.009A Unspecified fracture of unspecified lumbar vertebra, initial encounter for closed fracture; M51.36 Other intervertebral disc degeneration, lumbar region; M47.816 Spondylosis without myelopathy or radiculopathy, lumbar region; M47.817 Spondylosis without myelopathy or radiculopathy, lumbosacral region; M54.50 Low back pain, unspecified
CPT/HCPCS: 71046; 72110

== ENCOUNTER → 2023-05-29 08:04 | Outpatient (CLI) | payer BC, SELFPAY ==
[2023-01-21 09:14] VITALS: BMI 33.4
[2023-05-29 09:41] LABS: Add Manual Diff / Slide Review NO; Basophils Absolute Auto 0 /uL (0-100); Basophils Percent Auto 0.3 % (0-2); Eosinophils Absolute Auto 100 /uL (0-450); Eosinophils Percent Auto 1.1 % (2-4); Hemoglobin 15.7 g/dL (13.5-17.5); Lymphocytes Absolute Auto 1800 /uL (1100-4500); Lymphocytes Percent Auto 36.7 % (25-40); Mean Corpuscular HGB Conc 34.8 % (30-36); Mean Corpuscular Hemoglobin 29.4 PG (26-34); Mean Corpuscular Volume 84.4 fL (80-100); Monocytes Absolute Auto 300 /uL (0-900); Monocytes Percent Auto 5.6 % (3-14); Neutrophils Absolute Auto 2800 /uL (1500-7000); Neutrophils Percent Auto 56.3 % (50-75); Platelet Count 148 X10^3/uL (150-400); Red Blood Cell Count 5.34 X10^6/uL (4.5-5.9); Red Cell Distribution Width 12.5 % (11.6-14.8)
[2023-05-29 09:51] LABS: Hemoglobin A1C% w Est Avg Glu 7.3 % (4.0-6.0)
[2023-05-29 09:52] LABS: Microalbumin Urine Random 0.6 mg/dL (0-1.6)
[2023-05-29 10:04] LABS: Creatinine Urine Random 19.3 mg/dL
[2023-05-29 10:23] LABS: Alanine Aminotransferase 36 IU/L (<50); Albumin 4.6 g/dL (3.5-5.0); Albumin Globulin Ratio 1.5 (1.0-2.8); Alkaline Phosphatase 61 U/L (38-126); Aspartate Aminotransferase 26 IU/L (17-59); BUN Creatinine Ratio 14.5 (6-22); Bilirubin Total 1.5 mg/dL (0.2-1.3); Blood Urea Nitrogen 11 mg/dL (9-20); Calcium 9.4 mg/dL (8.4-10.2); Carbon Dioxide 26 mmol/L (22-32); Chloride 101 mmol/L (98-107); Cholesterol 158 mg/dL (140-199); Estimated Glomerular Filt Rate > 60 mL/min (>60); Glucose 170 mg/dL (70-100); HDL Cholesterol 29 mg/dL (40-60); HEMOLYSIS < 15 (0-50); Potassium 4.1 mmol/L (3.4-5.1); Sodium 136 mmol/L (137-145); Total Protein 7.6 g/dL (6.3-8.2); Triglycerides 413 mg/dL (35-150)
== END ==
PROVIDERS: Family Provider Family Medicine; PCP Family Medicine; Referring Provider Family Medicine; Visit Provider Family Medicine
DX: R73.9 Hyperglycemia, unspecified (principal); E78.6 Lipoprotein deficiency; D69.6 Thrombocytopenia, unspecified
CPT/HCPCS: 36415; 80053; 80061; 82043; 82570; 83036; 85025

== ENCOUNTER → 2023-05-30 10:01 | Outpatient (CLI) | payer BC, SELFPAY ==
[2023-01-21 09:14] VITALS: BMI 33.4
--- NOTE | 2023-05-30 10:03 | DI.RAD.S_ITS ---
PROCEDURE: XR TIBIA FUBULA RT 2V INDICATIONS: bilateral lower leg pain TECHNIQUE: 2 views of the tibia and fibula were acquired. COMPARISON: None. FINDINGS: Bones: No fractures or dislocations. No suspicious bony lesions. Soft tissues: No suspicious soft tissue calcifications or masses. IMPRESSION: No acute bony abnormality. Dictated by: Portillo Cummings M.D. on 05/30/2023 at 10:41 Approved by: Portillo Cummings M.D. on 05/30/2023 at 10:41
--- NOTE | 2023-05-30 10:03 | DI.RAD.S_ITS ---
PROCEDURE: XR TIBIA FIBULA LT 2V INDICATIONS: bilateral lower leg pain, wakes at night TECHNIQUE: 3 views of the tibia and fibula were acquired. COMPARISON: None. FINDINGS: Bones: No fractures or dislocations. No suspicious bony lesions. Soft tissues: No suspicious soft tissue calcifications or masses. IMPRESSION: No acute bony abnormality. Dictated by: Portillo Cummings M.D. on 05/30/2023 at 10:39 Approved by: Portillo Cummings M.D. on 05/30/2023 at 10:41
== END ==
PROVIDERS: Family Provider Family Medicine; PCP Family Medicine; Referring Provider Family Medicine; Visit Provider Family Medicine
DX: M79.604 Pain in right leg (principal); M79.605 Pain in left leg
CPT/HCPCS: 73590

== ENCOUNTER → 2023-08-29 10:30 | Outpatient (CLI) | payer BC, SELFPAY ==
[2023-01-21 09:14] VITALS: BMI 33.4
[2023-08-29 11:17] LABS: Hemoglobin A1C% w Est Avg Glu 7.3 % (4.0-6.0)
[2023-08-29 11:36] LABS: Alanine Aminotransferase 35 IU/L (<50); Albumin 4.7 g/dL (3.5-5.0); Albumin Globulin Ratio 1.7 (1.0-2.8); Alkaline Phosphatase 63 U/L (38-126); Aspartate Aminotransferase 27 IU/L (17-59); BUN Creatinine Ratio 13.6 (6-22); Blood Urea Nitrogen 11 mg/dL (9-20); Calcium 9.4 mg/dL (8.4-10.2); Carbon Dioxide 30 mmol/L (22-32); Chloride 102 mmol/L (98-107); Estimated Glomerular Filt Rate > 60 mL/min (>60); Globulin 2.7 g/dL (1.7-4.1); Glucose 159 mg/dL (70-100); HEMOLYSIS < 15 (0-50); Potassium 4.6 mmol/L (3.4-5.1); Sodium 138 mmol/L (137-145); Total Protein 7.4 g/dL (6.3-8.2)
[2023-08-29 11:43] LABS: Creatinine Urine Random 30.9 mg/dL
[2023-08-29 11:48] LABS: Microalbumi Creatinin Ratio Ur 48.5 ug/mg CR (<30); Microalbumin Urine Random 1.5 mg/dL (0-1.6)
== END ==
PROVIDERS: Family Provider Family Medicine; PCP Family Medicine; Referring Provider Family Medicine; Visit Provider Family Medicine
DX: E11.9 Type 2 diabetes mellitus without complications (principal)
CPT/HCPCS: 36415; 80053; 82043; 82570; 83036

== ENCOUNTER → 2024-05-18 11:01 | Outpatient (CLI) | payer BC, SELFPAY ==
[2023-01-21 09:14] VITALS: BMI 33.4
[2024-05-18 11:47] LABS: Hemoglobin A1C% w Est Avg Glu 11.6 % (4.0-6.0)
[2024-05-18 11:55] LABS: Alanine Aminotransferase 29 IU/L (<50); Albumin 4.8 g/dL (3.5-5.0); Alkaline Phosphatase 77 U/L (38-126); Aspartate Aminotransferase 25 IU/L (17-59); BUN Creatinine Ratio 17.6 (6-22); Bilirubin Total 1.3 mg/dL (0.2-1.3); Blood Urea Nitrogen 13 mg/dL (9-20); Calcium 9.3 mg/dL (8.4-10.2); Carbon Dioxide 27 mmol/L (22-32); Chloride 99 mmol/L (98-107); Estimated Glomerular Filt Rate > 60 mL/min (>60); Globulin 2.4 g/dL (1.7-4.1); Glucose 295 mg/dL (70-100); HEMOLYSIS < 15 (0-50); Potassium 4.4 mmol/L (3.4-5.1); Sodium 133 mmol/L (137-145); Total Protein 7.2 g/dL (6.3-8.2)
== END ==
PROVIDERS: Family Provider Family Medicine; PCP Family Medicine; Referring Provider Family Medicine; Visit Provider Family Medicine
DX: E78.6 Lipoprotein deficiency (principal); D69.6 Thrombocytopenia, unspecified; E11.9 Type 2 diabetes mellitus without complications; M54.50 Low back pain, unspecified; G89.29 Other chronic pain
CPT/HCPCS: 36415; 80053; 83036

== ENCOUNTER → 2024-08-24 09:12 | Outpatient (CLI) | payer BC, SELFPAY ==
[2023-01-21 09:14] VITALS: BMI 33.4
[2024-08-24 10:38] LABS: Hemoglobin A1C% w Est Avg Glu 5.9 % (4.0-6.0)
[2024-08-24 10:49] LABS: Alanine Aminotransferase 22 IU/L (<50); Alkaline Phosphatase 62 U/L (38-126); Aspartate Aminotransferase 23 IU/L (17-59); BUN Creatinine Ratio 16.5 (6-22); Bilirubin Total 0.8 mg/dL (0.2-1.3); Blood Urea Nitrogen 13 mg/dL (9-20); Calcium 9.2 mg/dL (8.4-10.2); Carbon Dioxide 24 mmol/L (22-32); Chloride 104 mmol/L (98-107); Cholesterol 211 mg/dL (140-199); Estimated Glomerular Filt Rate > 60 mL/min (>60); Globulin 2.5 g/dL (1.7-4.1); Glucose 118 mg/dL (70-99); HDL Cholesterol 32 mg/dL (40-60); HEMOLYSIS < 15 (0-50); Potassium 4.3 mmol/L (3.4-5.1); Sodium 138 mmol/L (137-145); Total Protein 7.5 g/dL (6.3-8.2); Triglycerides 457 mg/dL (35-150)
[2024-08-24 11:15] LABS: TSH w/ Reflex to FT4 1.23 uIU/mL (0.47-4.68)
[2024-08-26 11:35] LABS: Antipancreatic Islet Cells Negative (Neg:<1:1)
[2024-09-01 14:36] LABS: GAD-65 Antibody <5.0 U/mL (0.0-5.0)
== END ==
LOC: LAB 09:13
PROVIDERS: Family Provider Family Medicine; PCP Family Medicine; Referring Provider Family Medicine; Visit Provider Family Medicine
DX: E13.9 Other specified diabetes mellitus without complications (principal); R73.9 Hyperglycemia, unspecified; E78.5 Hyperlipidemia, unspecified
CPT/HCPCS: 36415; 80053; 80061; 83036; 84443; 86341